=== PATIENT | male | born 1985 | race Hispanic/Latino ===

== ENCOUNTER 2018-05-18 23:37 | Emergency (ER) | payer BC, OTHER ==
[2018-05-18 23:37] VITALS: BMI 28.7
[2018-05-18 23:58] VITALS: BP 135/86; PULSE 54; RESP 18; TEMP 98.4; O2SAT 98
--- NOTE | 2018-05-19 00:55 | C.PDOC ---
History Of Present Illness 33 y/o male with PMHx of intermittent back pain, presents to the ED complaining of low back pain for past 2-3 days. Pain is now radiating to the mid-upper back. Patient states he went golfing this past weekend, but denies any trauma or fall. Also denies any weakness, numbness, tingling, dysuria, incontinence, or other complaints. Time Seen by Provider: 05/19/18 00:01 Chief Complaint (Nursing): Back Pain History Per: Patient History/Exam Limitations: no limitations Onset/Duration Of Symptoms: Days Current Symptoms Are (Timing): Still Present Previous Symptoms: Back Pain Past Medical History Reviewed: Historical Data, Nursing Documentation, Vital Signs Vital Signs: Last Vital Signs Temp 98.4 F 05/18/18 23:56 Pulse 54 L 05/18/18 23:56 Resp 18 05/18/18 23:56 BP 135/86 05/18/18 23:56 Pulse Ox 98 05/18/18 23:56 - Medical History PMH: Back Problems Denies: Depression Family History: States: No Known Family Hx - Social History Hx Tobacco Use: Yes Hx Alcohol Use: Yes Hx Substance Use: No - Immunization History Hx Tetanus Toxoid Vaccination: No Hx Influenza Vaccination: No Hx Pneumococcal Vaccination: No Review Of Systems Except As Marked, All Systems Reviewed And Found Negative. Constitutional: Negative for: Fever, Chills Genitourinary: Negative for: Dysuria, Frequency, Incontinence, Hematuria Musculoskeletal: Positive for: Back Pain Neurological: Negative for: Weakness, Numbness, Incoordination Physical Exam - Physical Exam Appears: Non-toxic, No Acute Distress Skin: Normal Color, Warm, Dry Head: Atraumatic, Normacephalic Eye(s): bilateral: Normal Inspection Neck: Normal ROM Chest: Symmetrical Respiratory: No Accessory Muscle Use, Other (speaking in full sentences) Back: No Vertebral Tenderness, Paraspinal Tenderness (mild paralumbar tenderness bilaterally), No Straight Leg Raising, Other (No rash) Extremity: Bilateral: Atraumatic, Normal Color And Temperature Neurological/Psych: Oriented x3, Normal Speech, Normal Motor, Normal Sensation ED Course And Treatment O2 Sat by Pulse Oximetry: 98 (RA) Pulse Ox Interpretation: Normal Progress Note: Patient refused pain meds, and is requesting x-ray evaluation. X- ray taken of lumbar spine, shows no acute findings. Advised patient to continue PO pain meds and follow up with PMD. 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 - Scribe Statement The provider has reviewed the documentation as recorded by the Scribe (Lily Buchanan) All medical record entries made by the Scribe were at my direction and personally dictated by me. I have reviewed the chart and agree that the record accurately reflects my personal performance of the history, physical exam, medical decision making, and the department course for this patient. I have also personally directed, reviewed, and agree with the discharge instructions and disposition.
--- NOTE | 2018-05-19 07:48 | RAD ---
Date of service: 05/19/2018 PROCEDURE: Radiographs of the Lumbar Spine. HISTORY: pain, atraumatic COMPARISON: No prior. FINDINGS: BONES: Normal alignment. No listhesis. No fracture. DISC SPACES: . Lumbosacral junction transitional elements are probable are probable with lowest disc containing space considered rudimentary. The disc space above it is also posteriorly slightly narrowed. OTHER FINDINGS: On the lateral view there is density projecting over 1 of the oblique iliac anterior bones near the crest of unknown clinical significance, if any. A 2 mm left hemipelvic phleboliths is noted . IMPRESSION: No fracture or lytic lesion. 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 Other findings as above.
== END 2018-05-19 01:00 | disposition home or self-care (01) ==
LOC: SUPCPDRO 23:37 → C.ER 23:37
DX: S39.012A Strain of muscle, fascia and tendon of lower back, initial encounter (principal); X58.XXXA Exposure to other specified factors, initial encounter